=== PATIENT | male | born 1970 | race Caucasian/White ===

== ENCOUNTER 2019-06-22 20:43 | Emergency (ER) | payer BC, MEDICAID ==
--- NOTE | 2019-06-22 21:00 | ED Physician Documentation ---
History of Present Illness - Stated complaint Stated Complaint: COUGH W BLOOD - Chief complaint Chief Complaint: General - History obtained from History obtained from: Patient (the patient is an otherwise very healthy 48 y/o m who p/w concerns that he could have covid 19, he coughed up what he described as a teaspoon of blood and read that this could be a symptom of covid, he denies any lower extremity swelling, any hx of dvt or pe, any chest pain or sob. patient reports he is asymptomatic at this time. denies any recent long travels, recent surgeries, exogenous estrogen use or any personal history of hypercoaguability. the patient denies any recent travel outside the country, denies any direct known exposure to any symptomatic patients or any known covid19 patients. denies cough or sob currently.) Review of Systems Ten Systems: 10 systems reviewed and negative Constitutional: reports: Reviewed and negative Eyes: reports: Reviewed and negative Ears: reports: Reviewed and negative Nose: reports: Reviewed and negative Throat: reports: Reviewed and negative Cardiac: reports: Reviewed and negative Respiratory: reports: Hemoptysis GI: reports: Reviewed and negative : reports: Reviewed and negative Skin: reports: Reviewed and negative Musculoskeletal: reports: Reviewed and negative Neurologic: reports: Reviewed and negative Psychiatric: reports: Reviewed and negative Endocrine: reports: Reviewed and negative Immunocompromised: reports: Reviewed and negative PD PAST MEDICAL HISTORY - Present Medications Home Medications: Ambulatory Orders Medication Instructions Recorded Confirmed Azithromycin 250 mg PO DAILY 4 Days #4 tablet 06/22/19 - Allergies Allergies/Adverse Reactions: Allergies Allergy/AdvReac Type Severity Reaction Status Date / Time No Known Drug Allergies Allergy Verified 06/22/19 20:55 PD ED PE NORMAL - Vitals Vital signs reviewed: Yes - General General: Alert and oriented X 3, No acute distress, Well developed/nourished - HEENT HEENT: Atraumatic, PERRL, Moist mucous membranes, Pharynx benign - Neck Neck: Supple, no meningeal sign - Cardiac Cardiac: RRR, No murmur, Strong equal pulses - Respiratory Respiratory: No respiratory distress, Clear bilaterally - Abdomen Abdomen: Normal bowel sounds, Soft, Non tender, Non distended, No organomegaly - Back Back: No CVA TTP, No spinal TTP - Derm Derm: Normal color, Warm and dry, No rash - Extremities Extremities: No deformity, No tenderness to palpate, Normal ROM s pain, No edema, No calf tenderness / cord - Neuro Neuro: Alert and oriented X 3, 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 if patient continues to be symptomatic he should return tomorrow for the covid 19 tent for eval. ), d/w patient (22:40 cxr as interpreted by radiologist shows a possible viral infection, given the patient's history and radiograph findings, will send a covid19 testing and treat empirically with azithromycin. patient to follow up with his pcp tomorrow.) Departure - Departure Disposition: 01 Home, Self Care Clinical Impression: Atypical pneumonia Condition: Stable Instructions: Pneumonia Follow-Up: your, doctor [Other] Prescriptions: Azithromycin 250 mg PO DAILY 4 Days #4 tablet Comments: follow up with your primary care provider tomorrow. take medication as directed. call hospital to follow up on covid19 test results. take tylenol as needed if you develop fever. return to the emergency department for difficulty breathing.
--- NOTE | 2019-06-22 22:00 | XRAY Report ---
Reason: hemoptysis Procedure Date: 06/22/2019 Accession Number: [id number] / [id number] Procedure: XR - Chest 1 View X-Ray CPT Code: 43536 Final Report FULL RESULT: EXAM: CHEST RADIOGRAPHY EXAM DATE: 06/22/2019 09:22 PM. CLINICAL HISTORY: Hemoptysis. COMPARISON: None. TECHNIQUE: 1 view. FINDINGS: The mediastinal and cardiac silhouettes are normal. Bibasilar interstitial opacities are seen. There is no focal consolidation, pleural effusion, or pneumothorax. Mild degenerative changes are seen in the thoracic spine. IMPRESSION: Mild bibasilar interstitial opacities, which may reflect an atypical viral infection. No focal consolidation. [facility]
[2019-06-22] MEDS ORDERED: AZITHROMYCIN 250 MG TABLET PO STA (22:11)
[2019-06-22 22:44] VITALS: BP 150/89
== END 2019-06-22 22:48 | disposition home or self-care (01) ==
LOC: ED 20:43
DX: J18.9 Pneumonia, unspecified organism (principal)
CPT/HCPCS: 71045; 87635; 99283; 99284; A9270; 81599